=== PATIENT | male | born 1955 | race Caucasian/White ===

== ENCOUNTER 2016-07-09 10:59 | Inpatient (IN) | payer BC ==
[~2016-07-09] VITALS: Ht 180.3 cm; Wt 82.0 kg
[~2016-07-09 10:59] MED LIST: ASPI325T39 PO; HYDR25TA4 PO; LISI40TA PO; SIMV20TA2 PO; TPRSR50 PO
--- NOTE | 2016-07-09 12:11 | DIAGNOSTIC IMAGING REPORT ---
RIGHT ANKLE MIN 3 VIEWS ROUTINE CLINICAL HISTORY: fall/ankle pain Right trauma. Pain. COMPARISON: None. DISCUSSION: Comminuted nondisplaced fracture of the calcaneus. Ankle mortise is aligned anatomically. Moderate generalized soft tissue edema. IMPRESSION: Comminuted nondisplaced fracture of the calcaneus. Soft tissue edema. Electronically signed by: Asad Snyder M.D. 07/09/2016 12:10 PM Dictated Date/Time: 07/09/2016 12:09 PM
--- NOTE | 2016-07-09 12:11 | DIAGNOSTIC IMAGING REPORT ---
LEFT HEEL MIN 2 VIEWS CLINICAL HISTORY: Left heel pain status post trauma COMPARISON: None. DISCUSSION: There is a mildly comminuted calcaneal fracture. There is 2 mm of maximal distraction. There is equivocal extension to the anterior calcaneocuboid articulation. IMPRESSION: Comminuted calcaneal fracture Electronically signed by: Asa Harper M.D. 07/09/2016 12:10 PM Dictated Date/Time: 07/09/2016 12:08 PM
--- NOTE | 2016-07-09 12:13 | DIAGNOSTIC IMAGING REPORT ---
LEFT ANKLE MIN 3 VIEWS ROUTINE CLINICAL HISTORY: Left ankle pain following fall. COMPARISON: None FINDINGS: No acute fracture of the distal left tibia or fibula is present. Talar dome is intact. There is soft tissue swelling of the left ankle and hindfoot. There is an acute comminuted, mildly displaced calcaneal fracture which involves a large portion of the calcaneus. There is possible extension to the posterior facet of the subtalar joint as well as the calcaneocuboid articulation. IMPRESSION: 1. Comminuted, mildly displaced left calcaneal fracture with possible extension to the posterior facet of the subtalar joint and the calcaneocuboid articulation. 2. No acute fracture of the distal left tibia or fibula. Electronically signed by: Olvin Reyes M.D. 07/09/2016 12:12 PM Dictated Date/Time: 07/09/2016 12:09 PM
--- NOTE | 2016-07-09 12:13 | DIAGNOSTIC IMAGING REPORT ---
LEFT FOOT MIN 3 VIEWS ROUTINE CLINICAL HISTORY: fall l/foot pain trauma. Pain. COMPARISON: None. DISCUSSION: Comminuted fracture of the calcaneus. Soft tissue edema. left foot specifically is unremarkable. No additional fractures appreciated. IMPRESSION: Comminuted fracture of the calcaneus. Electronically signed by: Asad Snyder M.D. 07/09/2016 12:12 PM Dictated Date/Time: 07/09/2016 12:10 PM
--- NOTE | 2016-07-09 12:15 | DIAGNOSTIC IMAGING REPORT ---
RIGHT FOOT MIN 3 VIEWS ROUTINE CLINICAL HISTORY: fall l/foot pain Right pain Discussion: Comminuted fracture calcaneus. The remainder of the foot is unremarkable. Alignment is anatomic. IMPRESSION: Comminuted nondisplaced fracture of the calcaneus Electronically signed by: Asad Snyder M.D. 07/09/2016 12:13 PM Dictated Date/Time: 07/09/2016 12:12 PM
[2016-07-09] MEDS ORDERED: ACETAMINOPHEN 500 MG TAB PO STA (13:22)
--- NOTE | 2016-07-09 13:27 | DIAGNOSTIC IMAGING REPORT ---
CT OF THE RIGHT ANKLE/HEEL. CT DOSE: HISTORY: Trauma. Fracture. heel fracture Right TECHNIQUE: Multiaxial CT images of the right heel/ankle were performed and reformatted in the sagittal and coronal plane without the use of contrast. COMPARISON: None. FINDINGS: Comminuted essentially nondisplaced fracture of the right as well as left heel as has been previously noted. Fracture of the right extends to the subtalar joint. Distraction is no more than 2 mm in distance. There May be a slight impaction of the subtalar region. Fracture extends to the region of the interosseous ligament. By CT criteria the interosseous ligament appear to be generally intact. No additional fractures are identified. There is no evidence of dislocation. Moderate soft tissue edematous changes present. A significant pars planus deformity is not appreciated. IMPRESSION: Severely comminuted fracture right calcaneus with a slight degree of superior impaction in a slight degree of distraction. Distraction/impaction is no more than 2 mm at a location. No significant displacement or dislocation is appreciated all remaining osseous structures are unremarkable. No intra-articular loose bodies are appreciated. Electronically signed by: Asad Snyder M.D. 07/09/2016 1:26 PM Dictated Date/Time: 07/09/2016 1:21 PM
--- NOTE | 2016-07-09 13:27 | DIAGNOSTIC IMAGING REPORT ---
CT SCAN OF THE LEFT FOOT AND ANKLE NO CONTRAST CT DOSE: 54.24 mGy.cm CLINICAL HISTORY: Calcaneal fracture TECHNIQUE: Helical images were acquired in the transverse plane. Multiplane are reformatted images were acquired. COMPARISON STUDY: None. FINDINGS: There is a comminuted fracture of the calcaneus. The fracture involves the subtalar joint. The fracture demonstrates no greater than 3.5 mm of distraction. No additional fractures are visualized. IMPRESSION: Comminuted calcaneal fracture with involvement of the posterior subtalar joint Electronically signed by: Asa Harper M.D. 07/09/2016 1:26 PM Dictated Date/Time: 07/09/2016 1:22 PM
--- NOTE | 2016-07-09 15:46 | EMERGENCY ROOM VISIT NOTE ---
ED Visit Note First contact with patient: 11:13 CHIEF COMPLAINT: Bilateral feet and ankle injuries HISTORY OF PRESENT ILLNESS: This 60-year-old male presents the ER with chief complaint of injuries to both his ankles and feet. He states yesterday he fell off a ladder approximately 4 feet and landed flat-footed on the ground. The patient is mainly complaining of pain on both heels. He does admit to swelling and ecchymosis on both his feet and ankles. The patient states he has been able to bear weight but it is very painful. She denies any lower leg or knee pain. The patient denies any prior injury to these areas. He took Tylenol for pain. REVIEW OF SYSTEMS: 6 system review was performed and was negative unless stated otherwise in history of present illness. PMH: Hypertension SOCIAL HISTORY: Patient lives with his . The patient denies any tobacco or alcohol use. He is retired. PHYSICAL EXAM: Vital Signs: Were reviewed Reviewed Nurse's notes. GEN.: 60-year -old white male appears in no acute distress. MENTAL STATUS: Alert, oriented, and cooperative. LUNGS: Clear to auscultation without wheezes rales or rhonchi. CARDIAC: Regular rate and rhythm without murmur. Pulses full and equal throughout. ABDOMEN: Soft, nontender to palpation. LEFT ANKLE: No gross bony deformity noted. Diffuse edema over the ankle joint. Tenderness palpation over the lateral malleolus with ecchymosis in this area. LEFT FOOT: No gross bony deformity noted. Ecchymosis noted over the dorsal aspect of the foot. The patient is able to move his toes without difficulty. He is tender to palpation over the lateral aspect of the calcaneus. RIGHT ANKLE: No gross bony deformity noted. Generalized edema over the ankle joint. The patient has ecchymosis and tenderness over the lateral malleolus. RIGHT FOOT: No gross bony deformity noted. The patient has tenderness palpation over the dorsal aspect of the foot as well as the lateral aspect of the calcaneus. The patient is able to move his toes without difficulty. Pedal pulses 2+ bilaterally. EMERGENCY DEPARTMENT COURSE: The patient was evaluated. The patient was offered pain medication but declined. X-rays of bilateral ankles and feet were ordered and interpreted by the radiologist and myself. DIAGNOSIS:LEFT ANKLE MIN 3 VIEWS ROUTINE CLINICAL HISTORY: Left ankle pain following fall. COMPARISON: None FINDINGS: No acute fracture of the distal left tibia or fibula is present. Talar dome is intact. There is soft tissue swelling of the left ankle and hindfoot. There is an acute comminuted, mildly displaced calcaneal fracture which involves a large portion of the calcaneus. There is possible extension to the posterior facet of the subtalar joint as well as the calcaneocuboid articulation. IMPRESSION: 1. Comminuted, mildly displaced left calcaneal fracture with possible extension to the posterior facet of the subtalar joint and the calcaneocuboid articulation. 2. No acute fracture of the distal left tibia or fibula. Electronically signed by: Olvin Reyes M.D. 07/09/2016 12:12 PM RIGHT ANKLE MIN 3 VIEWS ROUTINE CLINICAL HISTORY: fall/ankle pain Right trauma. Pain. COMPARISON: None. DISCUSSION: Comminuted nondisplaced fracture of the calcaneus. Ankle mortise is aligned anatomically. Moderate generalized soft tissue edema. IMPRESSION: Comminuted nondisplaced fracture of the calcaneus. Soft tissue edema. Electronically signed by: Asad Snyder M.D. 07/09/2016 12:10 PM Dictated Date/Time: 07/09/2016 12:09 PM LEFT FOOT MIN 3 VIEWS ROUTINE CLINICAL HISTORY: fall l/foot pain trauma. Pain. COMPARISON: None. DISCUSSION: Comminuted fracture of the calcaneus. Soft tissue edema. left foot specifically is unremarkable. No additional fractures appreciated. IMPRESSION: Comminuted fracture of the calcaneus. Electronically signed by: Asad Snyder M.D. 07/09/2016 12:12 PM Dictated Date/Time: 07/09/2016 12:10 PM RIGHT FOOT MIN 3 VIEWS ROUTINE CLINICAL HISTORY: fall l/foot pain Right pain Discussion: Comminuted fracture calcaneus. The remainder of the foot is unremarkable. Alignment is anatomic. IMPRESSION: Comminuted nondisplaced fracture of the calcaneus Electronically signed by: Asad Snyder M.D. 07/09/2016 12:13 PM LEFT HEEL MIN 2 VIEWS CLINICAL HISTORY: Left heel pain status post trauma COMPARISON: None. DISCUSSION: There is a mildly comminuted calcaneal fracture. There is 2 mm of maximal distraction. There is equivocal extension to the anterior calcaneocuboid articulation. IMPRESSION: Comminuted calcaneal fracture Electronically signed by: Asa Harper M.D. 07/09/2016 12:10 PM [~ rep ct add3]] She was informed of the findings. I contacted Alistair DURBIN with [facility] about the patient. He instructed me to order a CT of both heels and call him back. CTs were ordered and interpreted by the radiologist. CT SCAN OF THE LEFT FOOT AND ANKLE NO CONTRAST CT DOSE: 54.24 mGy.cm CLINICAL HISTORY: Calcaneal fracture TECHNIQUE: Helical images were acquired in the transverse plane. Multiplane are reformatted images were acquired. COMPARISON STUDY: None. FINDINGS: There is a comminuted fracture of the calcaneus. The fracture involves the subtalar joint. The fracture demonstrates no greater than 3.5 mm of distraction. No additional fractures are visualized. IMPRESSION: Comminuted calcaneal fracture with involvement of the posterior subtalar joint Electronically signed by: Asa Harper M.D. 07/09/2016 1:26 PM Dictated Date/Time: 07/09/2016 1:22 PM Dictated Date/Time: 07/09/2016 12:[address] OF THE RIGHT ANKLE/HEEL. CT DOSE: HISTORY: Trauma. Fracture. heel fracture Right TECHNIQUE: Multiaxial CT images of the right heel/ankle were performed and reformatted in the sagittal and coronal plane without the use of contrast. COMPARISON: None. FINDINGS: Comminuted essentially nondisplaced fracture of the right as well as left heel as has been previously noted. Fracture of the right extends to the subtalar joint. Distraction is no more than 2 mm in distance. There May be a slight impaction of the subtalar region. Fracture extends to the region of the interosseous ligament. By CT criteria the interosseous ligament appear to be generally intact. No additional fractures are identified. There is no evidence of dislocation. Moderate soft tissue edematous changes present. A significant pars planus deformity is not appreciated. IMPRESSION: Severely comminuted fracture right calcaneus with a slight degree of superior impaction in a slight degree of distraction. Distraction/impaction is no more than 2 mm at a location. No significant displacement or dislocation is appreciated all remaining osseous structures are unremarkable. No intra-articular loose bodies are appreciated. Electronically signed by: Asad Snyder M.D. 07/09/2016 1:26 PM I contacted Alistair who reviewed the CTs and discussed the patient with his attendings. He came to admit the patient. The patient was reevaluated on several occasions while in the emergency room. He did request Tylenol 1 g for pain. The patient informed me that he lives in a mobile home and has to go up a step to get to the porch and an additional step to get into the house. The patient would have to be completely nonweightbearing. The patient was given a lunch tray. Alistair came to evaluate the patient for admission. DIAGNOSIS: Bilateral comminuted heel fractures TREATMENT PLAN: Admission Current/Historical Medications Scheduled Aspirin (Aspirin Ec), 325 MG PO QAM Hydrochlorothiazide (Hctz), 25 MG PO QAM Lisinopril (Zestril), 40 MG PO QAM Metoprolol Succinate (Metoprolol Succinate ER), 50 TAB PO QAM Simvastatin (Zocor), 20 MG PO HS Allergies Coded Allergies: No Known Allergies (Unverified , 07/09/16) Vital Signs Date Time Temp Pulse Resp B/P Pulse Ox O2 Delivery O2 Flow Rate FiO2 07/09/16 14:35 86 18 160/90 96 Room Air 07/09/16 12:53 86 18 148/89 96 Room Air 07/09/16 11:02 37.1 99 18 162/96 97 Room Air Medications Administered Medications (Trade) Dose Ordered Sig/Katlyn Route Start Time Stop Time Status Last Admin Dose Admin Acetaminophen (Tylenol Tab) 1,000 mg NOW STAT PO 07/09/16 13:22 07/09/16 13:23 DC 07/09/16 13:27 1,000 MG Departure Information Impression Primary Impression: Heel fracture Dispostion Being Evaluated By Surgeon Condition GOOD Referrals Leonel Brar M.D. (PCP) Patient Instructions My [facility]
[2016-07-09] MEDS ORDERED: ONDANSETRON INJ 2 MG/ML 2 ML VIAL IV PRN (16:00)
[2016-07-09] MEDS ORDERED: DiphenhydrAMINE HCL 50 MG/ML VIAL IV PRN (16:00)
[2016-07-09] MEDS ORDERED: ZOLPIDEM TARTRATE 5 MG TAB PO PRN (16:00)
[2016-07-09] MEDS ORDERED: MoRPHine SULFATE 2 MG/ML CARP IV PRN (16:00)
[2016-07-09] MEDS ORDERED: MoRPHine SULFATE 10 MG/ML CARP/VIAL IV PRN (16:15)
[2016-07-09] MEDS ORDERED: MoRPHine SULFATE 4 MG/ML 1 ML CARP\\VIAL IV PRN (16:15)
[2016-07-09 16:30] VITALS: Ht 180.3 cm; Wt 82.0 kg
--- NOTE | 2016-07-09 16:47 | HISTORY & PHYSICAL EXAMINATION ---
DATE OF ADMISSION: 07/09/2016 CHIEF COMPLAINT: Pain in both heels. HISTORY OF PRESENT ILLNESS: The patient is a 60-year-old white male who states that he was trimming a tree up on a 10-foot ladder yesterday. He ended up losing his balance and fell onto the ground onto both feet and had some pain in his heels and was having difficulty getting around. He states that apparently he was crawling to the bathroom etc. and the pain was not getting any better. He apparently crawled out to his car and was able to actually ambulate somewhat into the Emergency Room, but that is the most he has ambulated in the last 2 days because of the increased pain with ambulation. He was seen by the staff. X-rays were taken and found that he had bilateral calcaneal fractures. It was discussed with the patient about plans for treating these being one could place him in a cast versus another being surgery for at least 1 calcaneus. He would be nonweightbearing for the next 6-8 weeks most likely. The patient was having difficulty at home getting around and feels that it would not be good for him to be at home since his home is not handicap accessible. We discussed the fact that if the patient is going to have surgery it would depend on how much swelling he would have in the calcanei and it may be anywhere from 4-5 days to 2 weeks before he can have surgery because of swelling. The patient is obviously not a candidate for [facility] at this time and we will go ahead and admit him for pain control, elevation and ice. PAST MEDICAL HISTORY: Hypertension, vertigo. Denies diabetes mellitus, tuberculosis, hepatitis C, COPD, rheumatic fever. PAST SURGICAL HISTORY: None. FAMILY HISTORY: Noncontributory. SOCIAL HISTORY: The patient is a nonsmoker, does not use tobacco and is retired. He lives with his in a mobile home. MEDICATIONS: Aspirin 325 mg p.o. q.a.m., hydrochlorothiazide 25 mg p.o. q.a.m., lisinopril 40 mg p.o. q.a.m., metoprolol 50 mg p.o. q.a.m., simvastatin 20 mg p.o. at bedtime. ALLERGIES: NKDA. REVIEW OF SYSTEMS: No recent fevers, chills, night sweats, unexplained weight loss or weight gain. No flu or cold-like symptoms. No increased cough or sputum production. No hemoptysis, no shortness of breath on exertion or at rest. No chest pain, chest pressure or irregular heartbeat. No abdominal pain. No nausea, vomiting, diarrhea. No melena, hematochezia or hematemesis. Denies hematuria, pyuria, dysuria or renal calculi. No history of CVA or TIA or seizure disorder. PHYSICAL EXAMINATION: VITAL SIGNS: Pulse 86, respirations 18, BP 160/90, pulse ox 96 on room air, temperature on admission was 37.1. GENERAL: The patient is a well-developed, well-nourished white male who is alert and oriented x3 and in mild amount of distress due to bilateral calcaneal fractures. He is alert and oriented x3. SKIN: Warm and dry. Turgor is good. HEAD, EYES, EARS, NOSE, AND THROAT: Head is normocephalic, atraumatic. There is no scleral icterus or injection seen at this time. Pupils are equal and react to light and accommodation. EOMI. Nasal airway is patent. Oral mucosa is pink and moist. NECK: Supple. HEART: Regular rate and rhythm without murmurs, gallops or splits. LUNGS: CTA without rales, rhonchi or wheezes. ABDOMEN: Soft, round and nontender. Bowel sounds are present x4. EXTREMITIES: Examination of the lower extremities, the patient has short posterior splints on the right and left ankles and feet and basically are wrapped in Toni wraps. Capillary refill is less than 2 seconds, a shade sluggish due to the patient having his feet hanging off the bed initially when I came in. He has some noted swelling of the feet at this time but pulses appear to be equal. He denies any ankle pain and states that all of his pain when he attempts to place weight on his feet is all in the heels of both feet. He denies any pain in the knees or hips of the lower extremities and has good range of motion of both. Bilateral upper extremities are essentially within normal limits with range of motion and the distal pulses are equal bilaterally. Strengths are equal bilaterally. CMS appears to be intact. DIAGNOSIS: Bilateral calcaneal fracture. PLAN: At this point, the patient will be admitted for pain control, rest, ice, elevation and compression. X-rays will be reviewed by Dr. Bliss as well as Dr. Hernandez and plans for treating these fractures. Case management will be consulted for possible placement to a [place] [facility] facility for the patient if needed. TAYLOR
[2016-07-09 17:55] VITALS: BP 163/87; PULSE 81; TEMP 37.5; O2SAT 97
[2016-07-09 20:07] LABS: HEMATOCRIT 40.6 % (42-52); MEAN CELL VOLUME 89.4 fL (80-100); MEAN CORPUSCULAR HEMOGLOBIN 32.2 pg (25-34); PLATELET COUNT 169 K/uL (130-400); RED BLOOD COUNT 4.54 M/uL (4.7-6.1); WHITE BLOOD COUNT 11.03 K/uL (4.8-10.8)
[2016-07-09 20:30] LABS: CREATININE 1.2 mg/dl (0.60-1.40); POTASSIUM 3.4 mmol/L (3.5-5.1)
[2016-07-09] MEDS: OXYCODONE HCL IR 5 MG TAB (IMMEDIATE RELEASE) PO PRN (20:47)
[2016-07-09] MEDS: ACETAMINOPHEN 500 MG TAB PO SCH (22:09)
[2016-07-09 23:00] VITALS: BP 137/78; PULSE 83; TEMP 37.3; O2SAT 94
--- NOTE | 2016-07-09 23:27 | Medical Consult ---
Consultation Date of Consultation: Jul 09, 2016. Attending Physician: Erick Hernandez M.D. History of Present Illness This is a 60 yo m with bilat cancaneal fracture. the patient has a h/o HTN and hypercholesterolemia and takes medications regularly for this. On admission it was found that his bp was in the systolic > 160. The thought that this may have been secondary to pain but this sustained after pain was well controlled. Medical team was consulted for medical management. Patient feels very well right now and is resting in bed. pain is under control. he denies any chest pain, SOB, diaphoresis, N&V or other concerning symptoms. He mentions his bp is typically well controlled and he checks at home regularly. He is compliant with his medications. He states that he did have a brother who had an NJ at 35. Non smoker. Past Medical/Surgical History Medical Problems: (1) Heel fracture Status: Acute htn, hyperchol Family History FH: congestive heart failure Myocardial infarction in first degree male relative of known age BROTHER, Onset:35 Social History Smoking Status: Never Smoker Smokeless Tobacco Use: No Alcohol Use: none Drug Use: none Marital Status: single Allergies Coded Allergies: No Known Allergies (Unverified , 07/09/16) Current Inpatient Medications Current Inpatient Medications Medications (Trade) Dose Ordered Sig/Katlyn Route Start Time Stop Time Status Last Admin Dose Admin Diphenhydramine HCl (Benadryl Inj) 25 mg Q8 PRN IV 07/09/16 16:00 08/08/16 15:59 Zolpidem Tartrate (Ambien Tab) 5 mg HSZ PRN PO 07/09/16 16:00 08/08/16 15:59 Ondansetron HCl (Zofran Inj) 4 mg Q6H PRN IV 07/09/16 16:00 08/08/16 15:59 Oxycodone HCl (Roxicodone Immediate Rel Tab) @ Q4HWA PRN PO 07/09/16 16:00 07/23/16 15:59 07/09/16 20:47 5 MG Morphine Sulfate (MoRPHine SULFATE INJ) 2 mg Q4HWA PRN IV 07/09/16 16:00 07/23/16 15:59 Acetaminophen (Tylenol Tab) 1,000 mg Q8 PO 07/09/16 22:00 08/08/16 21:59 07/09/16 22:09 1,000 MG Morphine Sulfate (MoRPHine SULFATE INJ) 4 mg Q4HWA PRN IV 07/09/16 16:15 07/23/16 16:14 Morphine Sulfate (MoRPHine SULFATE INJ) 6 mg Q4HWA PRN IV 07/09/16 16:15 07/23/16 16:14 Review of Systems Constitutional: No fever ENT: No hearing loss Respiratory: No cough, No dyspnea at rest, No dyspnea on exertion, No shortness of breath, No sputum, No wheezing Cardiovascular: No chest pain Abdomen: No constipation, No diarrhea, No nausea, No pain, No vomiting Musculoskeletal: No joint pain, No muscle pain Neurologic: No balance problems, No numbness/tingling, No weakness Endocrine: No fatigue Integumentary: No rash Physical Exam Date Time Temp Pulse Resp B/P Pulse Ox O2 Delivery O2 Flow Rate FiO2 07/09/16 22:36 Room Air 07/09/16 17:55 37.5 81 16 163/87 97 Room Air 07/09/16 16:32 91 18 148/87 93 Room Air 07/09/16 16:30 Room Air 07/09/16 14:35 86 18 160/90 96 Room Air 07/09/16 12:53 86 18 148/89 96 Room Air 07/09/16 11:02 37.1 99 18 162/96 97 Room Air General Appearance: WD/WN, no apparent distress Head: normocephalic, atraumatic Eyes: normal inspection ENT: normal ENT inspection Neck: supple Respiratory/Chest: lungs clear, normal breath sounds, no respiratory distress, no accessory muscle use Cardiovascular: regular rate, rhythm, no murmur Abdomen/GI: normal bowel sounds, non tender, soft Back: normal inspection Extremities/Musculoskelatal: normal inspection, no calf tenderness, + pertinent finding (casts noted on bilat ankles) Neurologic/Psych: alert, normal mood/affect, oriented x 3 Skin: normal color, warm/dry, no rash Lymphatic: no adenopathy Laboratory Results Last 24 Hours Test 07/09/16 19:50 White Blood Count 11.03 K/uL Red Blood Count 4.54 M/uL Hemoglobin 14.6 g/dL Hematocrit 40.6 % Mean Corpuscular Volume 89.4 fL Mean Corpuscular Hemoglobin 32.2 pg Mean Corpuscular Hemoglobin Concent 36.0 g/dl RDW Standard Deviation 43.1 fL RDW Coefficient of Variation 13.2 % Platelet Count 169 K/uL Mean Platelet Volume 11.0 fL Sodium Level 142 mmol/L Potassium Level 3.4 mmol/L Chloride Level 102 mmol/L Carbon Dioxide Level 31 mmol/L Anion Gap 9.0 mmol/L Blood Urea Nitrogen 13 mg/dl Creatinine 1.20 mg/dl Est Creatinine Clear Calc Drug Dose 68.8 ml/min Estimated GFR () 75.2 Estimated GFR (Non- 64.9 BUN/Creatinine Ratio 11.0 Random Glucose 100 mg/dl Calcium Level 9.0 mg/dl Hepatitis C Antibody Screen NEG Assessment & Plan this is a 60 yo m s/p bilateral calcaneal fracture repair and uncontrolled htn. Could be secondary to stress of surgery/ pain however will continue to monitor and address as needed HTN uncontrolled most likely secondary to stress - cont home metoprolol, lisinopril and HCTZ - additionally add Lopressor and hydralazine prn Hyper cholesterolemia - cont simvastatin Bilat calcaneal fracture - pain mx per primary team FULL CODE Assessment and Plan Attending Addendum: I have physically seen and examined this patient, have directed their medical care, have supervised the medical residents activities, and agree with the H&P as noted above, with the following changes: NONE The patient is awake, well-developed and adequately nourished, alert and oriented 3, normocephalic and atraumatic, lying in bed and in no acute distress. HEENT--PERRL, EOMI, mucous membranes and oropharynx dry. Neck--supple, no JVD or bruits, thyroid normal, trachea midline, no adenopathy. Heart--normal S1 and S2, no extra beats, no murmurs, rubs or gallops. Lungs--clear bilaterally with good air movement, no respiratory distress, no accessory muscle use. Abdomen--normal bowel sounds and soft, nontender and nondistended, no hernias or masses, no organomegaly. Extremities--no cyanosis, clubbing or edema. There are good distal pulses b/l. Dermatologic--normal skin turgor, normal color, warm and dry, no abnormal lymph nodes, no rash. Neurologic--cranial nerves II through XII grossly intact, motor and sensory examination normal. Psychiatric--normal affect. Assessment and Plan: Hypertension--continue metoprolol, lisinopril and HCTZ as noted. We will have when necessary Lopressor if blood pressure is elevated and heart rate is above 70, or hydralazine if blood pressures elevated heart rate is below 70.
[2016-07-09] MEDS ORDERED: METOPROLOL TARTRATE 1 MG/ML VIAL IV PRN (23:45)
[2016-07-09] MEDS ORDERED: HydrALAZINE HCL 20 MG/ML VIAL IV. PRN (23:45)
[2016-07-10] MEDS: ACETAMINOPHEN 500 MG TAB PO SCH ×3 (05:28→22:00)
[2016-07-10 07:41] VITALS: BP 138/70; PULSE 88; TEMP 36.6; O2SAT 96
[2016-07-10 08:17] VITALS: O2SAT 96
[2016-07-10] MEDS ORDERED: POTASSIUM CHLORIDE 20 MEQ TABCR PO ONE (08:30)
[2016-07-10] MEDS: HYDROCHLOROTHIAZIDE 25 MG TAB PO SCH (09:46)
[2016-07-10] MEDS: METOPROLOL SUCC 25MG EXT REL TAB PO SCH (09:47)
[2016-07-10] MEDS: LISINOPRIL 40 MG TAB PO SCH (09:47)
[2016-07-10 10:19] LABS: BUN/CREATININE RATIO 11.4 (10-20); CALCIUM 8.5 mg/dl (8.5-10.1); CREATININE 1.2 mg/dl (0.60-1.40); MAGNESIUM 2.2 mg/dl (1.8-2.4)
[2016-07-10 11:29] VITALS: BP 130/82; PULSE 92; TEMP 37.1; O2SAT 96
--- NOTE | 2016-07-10 13:20 | Hospitalist Progress Note ---
Hospitalist Progress Note Date of Service Jul 10, 2016. (Kimberly Dallas .GIFTY) Subjective Pt evaluation today including: conversation w/ patient, physical exam, chart review, lab review, review of studies, review of inpatient medication list Pain: 1/10 pain in left heel PO Intake: Tolerating PO diet Voiding: no voiding problems Patient reports feeling well. He states that his pain is very well controlled and that he currently on has a 1/10 pain in the left heel and no pain in the right heel. He is tolerating a PO diet and urinating without any difficulties. He denies any other complaints. The patient denies fevers, chills, sweats, chest pain, palpitations, claudication, cough, wheezing, shortness of breath, nausea, vomiting, abdominal pain, dysuria, hematuria, urinary retention, paralysis, weakness, numbness and tingling. Additional Comments: See HPI for pertinent positives and negatives. All other systems reviewed and negative. (Kimberly Dallas PA-C) Objective Vital Signs Date Time Temp Pulse Resp B/P Pulse Ox O2 Delivery O2 Flow Rate FiO2 07/10/16 11:29 37.1 92 19 130/82 96 Room Air 07/10/16 08:17 96 Room Air 07/10/16 07:58 Room Air 07/10/16 07:41 36.6 88 20 138/70 96 Room Air 07/10/16 00:30 Room Air 07/09/16 23:00 37.3 83 18 137/78 94 Room Air 07/09/16 22:36 Room Air 07/09/16 17:55 37.5 81 16 163/87 97 Room Air 07/09/16 16:32 91 18 148/87 93 Room Air 07/09/16 16:30 Room Air 07/09/16 14:35 86 18 160/90 96 Room Air (Kimberly Dallas PA-C) Physical Exam General Appearance: WD/WN, no apparent distress Eyes: normal inspection, PERRL, EOMI ENT: normal ENT inspection, hearing grossly normal, pharynx normal Neck: supple, no JVD, trachea midline Respiratory/Chest: lungs clear, normal breath sounds, no respiratory distress Cardiovascular: regular rate, rhythm, no gallop, no murmur Abdomen: normal bowel sounds, non tender, soft Extremities: no calf tenderness, normal capillary refill, + pertinent finding ( both lower extremities wrapped. pt can wiggle toes and sensation intact. good pulses) Neurologic/Psychiatric: alert, normal mood/affect, oriented x 3 Skin: normal color, warm/dry, no rash (Kimberly Dallas ., PA-C) Laboratory Results Last 24 Hours Test 07/09/16 19:50 07/10/16 09:37 White Blood Count 11.03 K/uL Red Blood Count 4.54 M/uL Hemoglobin 14.6 g/dL Hematocrit 40.6 % Mean Corpuscular Volume 89.4 fL Mean Corpuscular Hemoglobin 32.2 pg Mean Corpuscular Hemoglobin Concent 36.0 g/dl RDW Standard Deviation 43.1 fL RDW Coefficient of Variation 13.2 % Platelet Count 169 K/uL Mean Platelet Volume 11.0 fL Sodium Level 142 mmol/L 140 mmol/L Potassium Level 3.4 mmol/L 3.0 mmol/L Chloride Level 102 mmol/L 102 mmol/L Carbon Dioxide Level 31 mmol/L 29 mmol/L Anion Gap 9.0 mmol/L 9.0 mmol/L Blood Urea Nitrogen 13 mg/dl 14 mg/dl Creatinine 1.20 mg/dl 1.20 mg/dl Est Creatinine Clear Calc Drug Dose 68.8 ml/min 68.8 ml/min Estimated GFR () 75.2 75.2 Estimated GFR (Non- 64.9 64.9 BUN/Creatinine Ratio 11.0 11.4 Random Glucose 100 mg/dl 155 mg/dl Calcium Level 9.0 mg/dl 8.5 mg/dl Hepatitis C Antibody Screen NEG Magnesium Level 2.2 mg/dl (Kimberly Dallas ., PA-C) Assessment and Plan 60 y/o male with a history of HTN and HLD who presented to the ED with bilateral calcaneal fractures following a fall from a ladder. Medicine has been consulted for medical management of hypertension. -Pain management, DVT prophylaxis, and PT/OT as per primary team HTN--improved and stable. BP did go down to 130s SBP late last evening and this morning, has remained stable -Continue HCTZ 25 mg PO qd, lisinopril 40 mg PO qd, and metoprolol succinate 50 mg PO qd -Cover with hydralazine 5 mg IV q6h prn SBP >180 Hypokalemia--Potassium 3.4 on arrival -Potassium 3.0 on 07/10 -KCl 40 mEq PO BID -Continue to monitor HLD -Continue simvastatin 20 mg PO qd Code Status -Level I, FULL RESUSCITATION STATUS Thank you for this consultation. We will continue to follow. (Kimberly Dallas ., PA-C) Attending Attestation: Pt seen/examined, chart reviewed, and care plan d/w CAROL Dallas. I agree w/ the sue components of her documentation. Pt w/ minimal heel pain. VSS BPs improved gen - NAD heart - RRR, s1, s2 lungs - CTA b/l ext - b/l heels/ankles/feet in dressings; cap refill < 2 sec K 3 A/P: 1. b/l heel fractures - management per ortho 2. hypokalemia - replace, repeat K am 3. HTN - improved Clarence FLYNN MD (Darwin Flynn MD)
--- NOTE | 2016-07-10 15:21 | Orthopedic Progress Note ---
Orthopedic Progress Note Date of Service Jul 10, 2016. Subjective Reports: feeling well, Denies: complaints Objective calves soft nontender, N/V intact, A&O x3, toes mobile Current splints removed. Moderate swelling and ecchymosis noted over both feet at the calcaneus as well as the dorsum of the feet. Moving his toes well. Sensation intact. Pulses difficult to feel with moderate swelling but cap refill less than 2 seconds. Toes pink and warm bilaterally. New posterior splints applied. Date Time Temp Pulse Resp B/P Pulse Ox O2 Delivery O2 Flow Rate FiO2 07/10/16 11:29 37.1 92 19 130/82 96 Room Air 07/10/16 08:17 96 Room Air 07/10/16 07:58 Room Air 07/10/16 07:41 36.6 88 20 138/70 96 Room Air 07/10/16 00:30 Room Air 07/09/16 23:00 37.3 83 18 137/78 94 Room Air 07/09/16 22:36 Room Air 07/09/16 17:55 37.5 81 16 163/87 97 Room Air 07/09/16 16:32 91 18 148/87 93 Room Air 07/09/16 16:30 Room Air Laboratory Results 24 Hours: Test 07/09/16 19:50 Hematocrit 40.6 % Hemoglobin 14.6 g/dL Assessment & Plan Assessment: Bilateral Calcaneal Fx's Htn Plan: CM discussed possible scenarios for dc. Pt offered SNF but pt would incur daily costs that would likely be too much for the patient. He feels that he should be able to get around in his house with a WC. Discussed having family help make a WC ramp for him. Will plan on likely dc to home. PT ordered to help him with transfers. Inhouse Planning Pain Management: Morphine, PO Tylenol, Oxy IR DVT Prophylaxis: SCDs Discharge Planning Pain Management: PO Tylenol, Oxy IR DVT Prophylaxis: ASA
[2016-07-10] MEDS ORDERED: ACET-1138 PO (15:34)
[2016-07-10] MEDS ORDERED: RXC5 PO (15:34)
--- NOTE | 2016-07-10 15:43 | Discharge Instructions ---
Discharge Instructions Admission Reason for Admission: Bilateral Calcaneal Fractures Discharge Discharge Diagnosis / Problem: BILATERAL CALCANEAL FRACTURES Discharge Goals Goal(s): Decrease discomfort, Improve function Activity Recommendations Activity Limitations: per Instructions/Follow-up section Weightbearing Status: Left non-weightbearing, Right non-weightbearing NON WEIGHTBEARING ON THE LEFT AND RIGHT FEET. TRANSFER ONLY FROM BED TO CHAIR /WHEEL CHAIR ONLY IT IS IMPORTANT TO KEEP YOUR FEET ELEVATED ON AT LEAST 2 PILLOWS REGULARLY. THIS WILL HELP YOUR SWELLING GO DOWN IN YOUR FEET. ICE TO BOTH HEELS/ANKLES REGULARLY . Instructions / Follow-Up Instructions / Follow-Up FOLLOW UP WITH DR ALEJANDRO IN 1 WEEK. CALL FOR APPOINTMENT. [phone] Current Hospital Diet Patient's current hospital diet: Regular Diet Discharge Diet Recommended Diet: Regular Diet Pending Studies Studies pending at discharge: no Medical Emergencies . Who to Call and When: Medical Emergencies: If at any time you feel your situation is an emergency, please call 911 immediately. . Non-Emergent Contact Non-Emergency issues call your: Surgeon (DR ALEJANDRO) Call Non-Emergent contact if: your pain is not controlled, your pain is worsening . "Provider Documentation" section prepared by Alistair Panda. VTE Core Measure Inpt VTE Proph given/why not?: Other Anticoagulation
[2016-07-10 16:03] VITALS: BP 144/82; PULSE 95; TEMP 36.8; O2SAT 96
[2016-07-10] MEDS: OXYCODONE HCL IR 5 MG TAB (IMMEDIATE RELEASE) PO PRN (19:57)
[2016-07-10] MEDS: POTASSIUM CHLORIDE 20 MEQ TABCR PO SCH (20:53)
[2016-07-10] MEDS ORDERED: SIMVASTATIN 20 MG TAB PO SCH (21:00)
[2016-07-10 23:00] VITALS: BP 133/69; PULSE 93; TEMP 37.2; O2SAT 97
[2016-07-11] MEDS: ACETAMINOPHEN 500 MG TAB PO SCH (05:50)
[2016-07-11 07:02] VITALS: BP 145/77; PULSE 72; TEMP 37.2; O2SAT 95
[2016-07-11 07:12] LABS: HEMATOCRIT 39.4 % (42-52); MEAN CELL VOLUME 89.3 fL (80-100); MEAN CORPUSCULAR HEMOGLOBIN 31.5 pg (25-34); MEAN CORPUSCULAR HGB CONC 35.3 g/dl (32-36); MEAN PLATELET VOLUME 10.9 fL (7.4-10.4); PLATELET COUNT 145 K/uL (130-400); RED BLOOD COUNT 4.41 M/uL (4.7-6.1); WHITE BLOOD COUNT 8.57 K/uL (4.8-10.8)
[2016-07-11 07:55] LABS: CALCIUM 8.6 mg/dl (8.5-10.1); CREATININE 1.1 mg/dl (0.60-1.40); POTASSIUM 3.8 mmol/L (3.5-5.1)
--- NOTE | 2016-07-11 08:36 | Hospitalist Progress Note ---
Hospitalist Progress Note Date of Service Jul 11, 2016. (Kimberly Dallas ., MARIBELLC) Subjective Pt evaluation today including: conversation w/ patient, physical exam, chart review, lab review, review of inpatient medication list Pain: None PO Intake: Tolerating PO diet Voiding: no voiding problems Patient reports feeling well. He currently denies any pain in either heel. He states that he had a good night and slept well. He has not had a bowel movement yet since being admitted, but he states that he will wait it out and see if he goes today. He is tolerating a PO diet and urinating without difficulty. The patient denies fevers, chills, sweats, chest pain, palpitations , claudication, cough, wheezing, shortness of breath, nausea, vomiting, abdominal pain, dysuria, hematuria, urinary retention, paralysis, weakness, numbness and tingling. Additional Comments: See HPI for pertinent positives and negatives. All other systems reviewed and negative. (Kimberly Dallas PA-C) Objective Vital Signs Date Time Temp Pulse Resp B/P Pulse Ox O2 Delivery O2 Flow Rate FiO2 07/11/16 07:02 37.2 72 16 145/77 95 Room Air 07/10/16 23:40 Room Air 07/10/16 23:00 37.2 93 18 133/69 97 Room Air 07/10/16 16:05 Room Air 07/10/16 16:03 36.8 95 18 144/82 96 Room Air 07/10/16 11:29 37.1 92 19 130/82 96 Room Air (Kimberly Dallas, CAROL-C) Physical Exam General Appearance: WD/WN, no apparent distress Eyes: normal inspection, PERRL, EOMI ENT: normal ENT inspection, hearing grossly normal, pharynx normal Neck: supple, no JVD, trachea midline Respiratory/Chest: lungs clear, normal breath sounds, no respiratory distress Cardiovascular: regular rate, rhythm, no gallop, no murmur Abdomen: normal bowel sounds, non tender, soft Extremities: non-tender, normal inspection, normal capillary refill, + pertinent finding (lower extremities in splints and wrapped in TRELL bandages. Sensation intact) Neurologic/Psychiatric: alert, normal mood/affect, oriented x 3 Skin: normal color, warm/dry, no rash (Dallas, Kimberly ., PA-C) Laboratory Results Last 24 Hours Test 07/10/16 09:37 07/11/16 07:01 Sodium Level 140 mmol/L 142 mmol/L Potassium Level 3.0 mmol/L 3.8 mmol/L Chloride Level 102 mmol/L 104 mmol/L Carbon Dioxide Level 29 mmol/L 29 mmol/L Anion Gap 9.0 mmol/L 9.0 mmol/L Blood Urea Nitrogen 14 mg/dl 15 mg/dl Creatinine 1.20 mg/dl 1.10 mg/dl Est Creatinine Clear Calc Drug Dose 68.8 ml/min 75.1 ml/min Estimated GFR () 75.2 83.5 Estimated GFR (Non- 64.9 72.1 BUN/Creatinine Ratio 11.4 14.0 Random Glucose 155 mg/dl 94 mg/dl Calcium Level 8.5 mg/dl 8.6 mg/dl Magnesium Level 2.2 mg/dl White Blood Count 8.57 K/uL Red Blood Count 4.41 M/uL Hemoglobin 13.9 g/dL Hematocrit 39.4 % Mean Corpuscular Volume 89.3 fL Mean Corpuscular Hemoglobin 31.5 pg Mean Corpuscular Hemoglobin Concent 35.3 g/dl RDW Standard Deviation 43.8 fL RDW Coefficient of Variation 13.4 % Platelet Count 145 K/uL Mean Platelet Volume 10.9 fL (Kimberly Dallas ., PA-C) Assessment and Plan 60 y/o male with a history of HTN and HLD who presented to the ED with bilateral calcaneal fractures following a fall from a ladder. Medicine has been consulted for medical management of hypertension. -Pain management, DVT prophylaxis, and PT/OT as per primary team HTN--improved and stable. BP did go down to 130s SBP and has remained stable -Continue HCTZ 25 mg PO qd, lisinopril 40 mg PO qd, and metoprolol succinate 50 mg PO qd -Cover with hydralazine 5 mg IV q6h prn SBP >180 Hypokalemia--resolved -Potassium 3.4 on arrival, evening of 07/09 -Potassium 3.0 on 07/10 -KCl 40 mEq PO BID -Repeat potassium 3.8 on 07/11 -Recommend continuing KCl 40 mEq PO qd as outpatient, especially given use of HCTZ. Discussed this with pt and is agreeable HLD -Continue simvastatin 20 mg PO qd Code Status -Level I, FULL RESUSCITATION STATUS Pt. is stable from a medical standpoint, we will sign off. Clear for discharge as per primary team. (Kimberly Dallas ., PA-C)
[2016-07-11 09:28] VITALS: BP 144/76; PULSE 88; O2SAT 98
[2016-07-11] MEDS: HYDROCHLOROTHIAZIDE 25 MG TAB PO SCH (09:41)
[2016-07-11] MEDS: LISINOPRIL 40 MG TAB PO SCH (09:41)
[2016-07-11] MEDS: METOPROLOL SUCC 25MG EXT REL TAB PO SCH (09:41)
[2016-07-11] MEDS: POTASSIUM CHLORIDE 20 MEQ TABCR PO SCH (09:42)
--- NOTE | 2016-07-11 10:30 | Orthopedic Progress Note ---
Orthopedic Progress Note Date of Service Jul 11, 2016. Subjective Reports: feeling well, pain controlled w PO medications, Denies: SOB, calf pain , chest pain, complaints, light headedness, nausea / vomiting Additional Notes: Hypokalemia resolved, medicine recommend continued K+ at home and has cleared him for discharge. Patient states all the medical assistive devices he needs at home have been delivered to his home. Objective calves soft nontender, N/V intact, splint C/D/I, capillary refill less than 2 sec., A&O x3, toes mobile Date Time Temp Pulse Resp B/P Pulse Ox O2 Delivery O2 Flow Rate FiO2 07/11/16 07:02 37.2 72 16 145/77 95 Room Air 07/10/16 23:40 Room Air 07/10/16 23:00 37.2 93 18 133/69 97 Room Air 07/10/16 16:05 Room Air 07/10/16 16:03 36.8 95 18 144/82 96 Room Air 07/10/16 11:29 37.1 92 19 130/82 96 Room Air Laboratory Results 24 Hours: Test 07/11/16 07:01 Hematocrit 39.4 % Hemoglobin 13.9 g/dL Assessment & Plan Assessment: Bilateral Calcaneal Fx's Htn Plan: Patient cleared to be D/C'd per medicine w home K+ Rx. Patient has all medical equipment needed and wheelchair for home. Will D/C home today, NWB both LE's Follow up with Dr. Bliss next week. Inhouse Planning Pain Management: Morphine, PO Tylenol, Oxy IR DVT Prophylaxis: SCDs Discharge Planning Pain Management: PO Tylenol, Oxy IR DVT Prophylaxis: ASA
[2016-07-11] MEDS ORDERED: MCRK20 PO ×2 (10:38→10:41)
[2016-07-11 13:01] VITALS: BP 145/77; PULSE 72; TEMP 37.2; O2SAT 95
--- NOTE | 2016-07-15 15:30 | DISCHARGE SUMMARY ---
DISCHARGE DIAGNOSIS: Bilateral calcaneal fractures. SECONDARY DIAGNOSES: Hypertension, history of vertigo. CONSULTS: Steph Leija M.D./Kaiser Granger M.D. COMPLICATIONS: None. PROCEDURES: None. BRIEF HISTORY: As dictated in history and physical. HOSPITAL SUMMARY: The patient was admitted on the above noted date with the above noted fractures for elevation, pain control and swelling control of both heels. CT scans had been performed and patient was essentially started on pain management with plans to have surgery if needed when swelling was appropriate. This was discussed with Dr. Hernandez as well as Dr. Bliss during the patient's stay. On his first hospital day, he had no complaints, was feeling well, pain was controlled. Calves were soft and nontender. Neurovascularly intact. Toes were mobile. The current splints that he had had on were removed and he had moderate swelling and ecchymosis noted over both the calcaneal areas and on the dorsum of the feet. He was moving his toes well. Sensation was intact. Pulses were difficult to feel with moderate swelling. Capillary refill was less than 2 seconds. Toes were pink and warm bilaterally and new posterior splints were applied without difficulty. The patient's vital signs were stable. He was afebrile. Case management had been discussing possible discharge scenarios for the patient and after looking at custodial facility the patient could not afford $300 daily cost for inpatient skilled facility and after discussing with family, it was felt that he could be managed at home. The rest of his stay was essentially uneventful and by 07/11/2016 he was remaining stable. He did have a noted run of hypokalemia which was resolved prior to discharge and it was felt that he could be discharged to home. For further review, please see chart. LAB AND X-RAY DATA: As per chart. DISCHARGE INSTRUCTIONS: The patient was discharged to home in satisfactory condition on 07/11/2016. DIET: Regular. ACTIVITY: Nonweightbearing on left and right feet and transfer from bed to chair or wheelchair only. Important to keep feet elevated on at least 2 pillows regularly when at rest, ice to both heels and ankles regularly. Follow up with Dr. Bliss on , 07/16/2016 at 10:10 a.m. DISCHARGE MEDICATIONS: Acetaminophen 1000 mg p.o. q. 8 hours, oxycodone 5-10 mg p.o. q. 4 hours p.r.n., potassium chloride 40 mEq p.o. daily. Resume aspirin 325 mg p.o. q.a.m., hydrochlorothiazide 25 mg p.o. q.a.m., lisinopril 40 mg p.o. q.a.m., metoprolol 50 mg p.o. q.a.m. and simvastatin 20 mg p.o. at bedtime.
== END 2016-07-11 13:49 | disposition home or self-care (01) | DRG 563 ==
LOC: ENRESERVTM → ENRESERVDT → C.EDB 11:01 → C.MSW 16:00
PROVIDERS: ADMIT Orthopaedic Surgery; ATTEND Orthopaedic Surgery
DX: S92.001A Unspecified fracture of right calcaneus, initial encounter for closed fracture (principal); S92.002A Unspecified fracture of left calcaneus, initial encounter for closed fracture; I10 Essential (primary) hypertension; E87.6 Hypokalemia; Y93.H2 Activity, gardening and landscaping; Y92.096 Garden or yard of other non-institutional residence as the place of occurrence of the external cause; W11.XXXA Fall on and from ladder, initial encounter

== ENCOUNTER → 2016-10-29 | Outpatient (CLI) | payer BC ==
[~2016-10-29] MED LIST changes: +ACET-1138 PO; +MCRK20 PO; +RXC5 PO
[2016-10-29 12:24] LABS: ALT/SGPT 30 U/L (12-78); BLOOD UREA NITROGEN 20 mg/dl (7-18); BUN/CREATININE RATIO 19.8 (10-20); CARBON DIOXIDE 29 mmol/L (21-32); CHLORIDE 105 mmol/L (98-107); CHOLESTEROL 167 mg/dl (0-200); GLUCOSE 87 mg/dl (70-99); POTASSIUM 3.6 mmol/L (3.5-5.1); SODIUM 142 mmol/L (136-145)
[2016-10-29 12:34] LABS: ALB/GLOB RATIO 1.2 (0.9-2); ALKALINE PHOSPHATASE 83 U/L (45-117); AST/SGOT 19 U/L (15-37); CHOLESTEROL/HDL RATIO 4.4; HDL CHOLESTEROL 38 mg/dl; LDL CHOLESTEROL CALCULATED 100 mg/dl; THYROID STIMULATING HORMONE 0.495 uIu/ml (0.300-4.500); TRIGLYCERIDES 145 mg/dl (0-150); VERY LOW DENSITY LIPOPROT CALC 29 mg/dl
== END | disposition home or self-care (01) ==
LOC: C.LABBFT 08:13
PROVIDERS: ATTEND Internal Medicine
DX: E78.5 Hyperlipidemia, unspecified (principal); I10 Essential (primary) hypertension

== ENCOUNTER → 2016-11-06 | Outpatient (CLI) | payer BC | END | disposition home or self-care (01) | LOC: C.LABBFT 17:10 | PROVIDERS: ATTEND Internal Medicine | DX: R97.20 Elevated prostate specific antigen [PSA] (principal) ==

== ENCOUNTER → 2017-05-05 | Outpatient (CLI) | payer BC ==
[2017-05-05 13:05] LABS: AST/SGOT 19 U/L (15-37); BLOOD UREA NITROGEN 15 mg/dl (7-18); BUN/CREATININE RATIO 14.8 (10-20); CARBON DIOXIDE 28 mmol/L (21-32); CHLORIDE 103 mmol/L (98-107); CHOLESTEROL 141 mg/dl (0-200); CREATININE 1.01 mg/dl (0.60-1.40); GLUCOSE 93 mg/dl (70-99); POTASSIUM 3.5 mmol/L (3.5-5.1); SODIUM 139 mmol/L (136-145); TRIGLYCERIDES 131 mg/dl (0-150); VERY LOW DENSITY LIPOPROT CALC 26 mg/dl
[2017-05-05 13:06] LABS: ALKALINE PHOSPHATASE 62 U/L (45-117); ALT/SGPT 37 U/L (12-78); CHOLESTEROL/HDL RATIO 3.3; HDL CHOLESTEROL 43 mg/dl; LDL CHOLESTEROL CALCULATED 72 mg/dl
== END | disposition home or self-care (01) ==
LOC: C.LABBFT 07:45
PROVIDERS: ATTEND Internal Medicine
DX: E78.5 Hyperlipidemia, unspecified (principal)

== ENCOUNTER → 2018-01-12 | Outpatient (CLI) | payer BC ==
[2018-01-12 12:47] LABS: BASO % 1.5 %; BASO ABS # 0.08 K/uL (0-0.2); EOS % 4.4 %; EOS ABS # 0.24 K/uL (0-0.5); HEMATOCRIT 43.9 % (42-52); HEMOGLOBIN 15.2 g/dL (14.0-18.0); IG# 0.02 K/uL (0.00-0.02); LYMPH % 29.3 %; MEAN CORPUSCULAR HEMOGLOBIN 31.1 pg (25-34); MEAN CORPUSCULAR HGB CONC 34.6 g/dl (32-36); MEAN PLATELET VOLUME 11.2 fL (7.4-10.4); MONO % 10.3 %; MONO ABS # 0.56 K/uL (0.11-0.59); NEUT % 54.1 %; NEUT ABS # 2.96 K/uL (1.4-6.5); PLATELET COUNT 199 K/uL (130-400); RED CELL DISTRIBUTION WIDTH CV 13.4 % (11.5-14.5); RED CELL DISTRIBUTION WIDTH SD 44.4 fL (36.4-46.3); WHITE BLOOD COUNT 5.46 K/uL (4.8-10.8)
[2018-01-12 13:39] LABS: ALBUMIN 3.8 gm/dl (3.4-5.0); ALKALINE PHOSPHATASE 54 U/L (45-117); ALT/SGPT 36 U/L (12-78); AST/SGOT 18 U/L (15-37); BLOOD UREA NITROGEN 18 mg/dl (7-18); CALCIUM 9.1 mg/dl (8.5-10.1); CARBON DIOXIDE 28 mmol/L (21-32); CHOLESTEROL 145 mg/dl (0-200); CREATININE 1.03 mg/dl (0.60-1.40); GLUCOSE 92 mg/dl (70-99); LDL CHOLESTEROL CALCULATED 76 mg/dl; POTASSIUM 3.6 mmol/L (3.5-5.1); SODIUM 140 mmol/L (136-145); TOTAL PROTEIN 7.1 gm/dl (6.4-8.2)
== END | disposition home or self-care (01) ==
LOC: C.LABBFT 07:42
PROVIDERS: ATTEND Urology
DX: Z12.5 Encounter for screening for malignant neoplasm of prostate (principal); E78.5 Hyperlipidemia, unspecified; I10 Essential (primary) hypertension